=== PATIENT | male | born 1960 | race African-American/Black ===

== ENCOUNTER 2020-01-09 19:50 | Emergency (ER) | payer SELFPAY ==
[~2020-01-09] VITALS: Ht 177.8 cm; Wt 75.0 kg
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
--- NOTE | 2020-01-10 00:34 | NUR ---
Report received from SANYA Gibbons. This RN to assume care.
--- NOTE | 2020-01-10 00:53 | NUR ---
Patient sleeping in gurney. Respirations even and unlabored.
--- NOTE | 2020-01-10 02:18 | NUR ---
Patient awoke and asked where he was and what happened. Patient unable to ambulate at this time.
[2020-01-10 03:55] VITALS: BP 125/81
--- NOTE | 2020-01-10 03:55 | NUR ---
Patient ambulatory with a steady gait. Discharge instructions given. All questions and concerns addressed. Belongings with patient.
== END 2020-01-10 03:57 | disposition home or self-care (01) ==
LOC: ED 01-10 02:15
DX: F10.120 Alcohol abuse with intoxication, uncomplicated (principal); Y90.0 Blood alcohol level of less than 20 mg/100 ml
CPT/HCPCS: 99283